=== PATIENT | male | born 2000 | race Caucasian/White ===

== ENCOUNTER → 2021-09-25 | Outpatient (CLI) | payer OTHER ==
--- NOTE | 2021-09-25 16:27 | Diagnostic Imaging Report ---
Indication: Low back pain Lumbar spine AP and lateral views of the lumbar spine shows normal vertebral body height and alignment. Disc spaces are normal. IMPRESSION: Negative lumbar spine Dictated by: Dictated on workstation # [id number]
--- NOTE | 2021-09-25 16:29 | Diagnostic Imaging Report ---
INDICATION: Bilateral knee pain EXAM: Three views of each knee were obtained FINDINGS: The joint spaces are well-maintained. Articular surfaces are smooth. There is no fracture, dislocation or pathologic effusion. IMPRESSION: Normal bilateral knees. Dictated by: Dictated on workstation # [email or web address]
--- NOTE | 2021-09-25 16:29 | Diagnostic Imaging Report ---
INDICATION: Bilateral hand pain EXAM: Three views of each hand are obtained FINDINGS: The joint spaces are well-maintained. Articular surfaces are smooth. There is no fracture or dislocation. IMPRESSION: Normal bilateral hands. Dictated by: Dictated on workstation # [email or web address]
== END ==
LOC: RAD 15:33
PROVIDERS: ATTEND Nurse Practitioner Family
DX: M79.641 Pain in right hand (principal); M79.642 Pain in left hand; M25.561 Pain in right knee; M25.562 Pain in left knee; M54.50 Low back pain, unspecified
CPT/HCPCS: 72100